=== PATIENT | male | born 1995 | race Caucasian/White ===

== ENCOUNTER 2016-06-24 17:43 | Emergency (ER) | payer MEDICARE, MEDICAID ==
[2016-06-24] MEDS ORDERED: LIDOCAINE 2% MDV 20 ML VIAL SC ONE (18:15)
[2016-06-24] MEDS ORDERED: ADACEL/BOOSTRIX VACCINE (DIPHTH/PERTUSS/ACELL/TETANUS)0.5ML SYR (90715) IM ONE (18:15)
[2016-06-24] MEDS ORDERED: NORCO, ANEXSIA 5/325MG TABLET (HYDROcodone/ACETAMINOPHEN) PO ONE (18:15)
--- NOTE | 2016-06-24 18:35 | REP ---
Clinical: Trauma. Comparison: None. Findings: The ventricles, sulci, and cisterns are normal in position and appearance. Rodriguez-white differentiation is maintained. No acute intracranial hemorrhage, mass/mass effect, pathology or trauma/injury. No evidence for acute infarction. There is a small scalp hematoma overlying the left vertex. No underlying fracture is identified. The calvarium is intact. The paranasal sinuses and mastoid air cells are clear. No definite extra-axial fluid collection is appreciated. Subtle prominence along the tentorium and along the falx is appreciated and likely related to technique rather than subdural hemorrhage. Impression: No evidence for acute intracranial pathology or trauma/injury. Small scalp hematoma overlies the left vertex. Signed by Bony Christina MD 06/24/2016 06:26 P
[2016-06-24 19:34] VITALS: BP 135/80
--- NOTE | 2016-06-24 20:27 | REP ---
Clinical: Trauma . Technique: Internal rotation, external rotation, and Y view left shoulder . Findings: No acute fracture or dislocation. The acromioclavicular and glenohumeral joints are intact. No periarticular calcifications or degenerative changes are appreciated. Sub acromial space is normal. Surrounding soft tissues are unremarkable. Impression: Normal left shoulder radiographs. No acute fracture or dislocation identified. Signed by Bony Christina MD 06/24/2016 08:19 P
--- NOTE | 2016-06-24 20:30 | REP ---
Clinical: Trauma. Technique: Frontal view of the chest with multiple views of the left hemithorax. Findings: Frontal view of the chest demonstrates no acute cardiopulmonary process. Multiple views of the left hemithorax demonstrates no obvious acute rib fracture or pathology. Impression: Normal left rib series Signed by Bony Christina MD 06/24/2016 08:21 P
== END 2016-06-24 19:46 | disposition home or self-care (01) ==
LOC: M ED 18:13
DX: S01.01XA Laceration without foreign body of scalp, initial encounter (principal); T14.8 Other injury of unspecified body region; S20.219A Contusion of unspecified front wall of thorax, initial encounter; S40.012A Contusion of left shoulder, initial encounter; W50.0XXA Accidental hit or strike by another person, initial encounter; Y92.410 Unspecified street and highway as the place of occurrence of the external cause; Y93.89 Activity, other specified; Y99.8 Other external cause status

== ENCOUNTER 2016-07-02 14:24 | Emergency (ER) | payer MEDICARE, MEDICAID ==
[~2016-07-02] VITALS: Ht 167.6 cm; Wt 86.2 kg
[2016-07-02 14:24] VITALS: BP 158/89
== END 2016-07-02 15:02 | disposition home or self-care (01) ==
LOC: M ED 14:38
DX: Z48.02 Encounter for removal of sutures (principal); F17.210 Nicotine dependence, cigarettes, uncomplicated